=== PATIENT | male | born 1950 | race Caucasian/White ===

== ENCOUNTER → 2016-06-05 | Outpatient (CLI) | payer BC ==
[~2016-06-05] MED LIST: ALLO300T2 PO; ALPR.5T PO; ASP81TEC PO; ATOR20TA66 PO; BLACK CHERRY EXTRACT PO; DICL50TA4 PO; HYDR-2889 PO; HYDR1TAB PO; MULT1CAP27 PO; OMEG1CAP74 PO; PANT40TA PO; POTA10TA17 PO; RAMI10CA PO; RAMI10TA PO; RMP5C PO; SERT50TA PO; SIMV20TA3 PO; TEMA7.5C PO; ZLP10T PO
--- OUTSIDE RECORDS SUMMARY | 2016-06-05 13:27 | XMS REPORT | Continuity of Care Document ---
Author Author [facility] Organization [facility] Address Unknown Phone Unavailable Care Team Providers Care Theatre Manager Name Role Phone NAEEM GIRALDO MD PCP Insurance Providers Payer Name Policy Number Subscriber Name Relationship [facility] [id number] Lidia Valdez 20 Self / Same As Patient Advance Directives Directive Response Recorded Date/Time Advance Directives No 04/24/13 10:40am Health Care Power of Endoscopy Tech No 04/24/13 10:40am Organ Donor Yes 04/24/13 10:40am Problems Medical Problems Problem Onset Date Status Chest pain Unknown Active Medications Medication Dose Route Sig Days/Qty Instructions Order Date Discontinued Date Status Ramipril 10 Mg PO DAILY 12/20/10 04/25/13 Discontinued Sertraline HCl 25 Mg PO DAILY TAKES 1/2 (50MG) TABLET DAILY 12/20/10 Active Aspirin 81 Mg PO DAILY 12/20/10 Active Multivitamins 1 Tab PO DAILY 12/20/10 Active Garland-3/Dha/Epa/Fish Oil 1,000 Mg PO DAILY 12/20/10 Active Pantoprazole Sodium 40 Mg PO BEDTIME 12/20/10 Active Simvastatin 20 Mg PO BEDTIME 12/20/10 04/25/13 Discontinued Hydrocodone Bit/Acetaminophen 0.5-1 Tab PO EVERY 8HRS PRN PAIN Active Potassium Citrate 10 Meq PO DAILY 12/20/10 Active Allopurinol 300 Mg PO DAILY 01/24/13 Active Acetaminophen/Hydrocodone Bitart 1 - 2 Each PO Q4 - 6H PRN NEW RX- SENT HOME WITH 01/28/13 04/24/13 Discontinued Alprazolam 0.5 Mg PO EVERY 6 HOURS PRN ANXIETY 04/24/13 Active Zolpidem Tartrate 10 Mg PO BEDTIME PRN SLEEP NEEDED FOR SLEEP Active [Black Su Extract] 1 Tab PO DAILY 04/24/13 Active Ramipril 10 Mg PO DAILY 1 Qty 04/25/13 Active Social History Social History Problem Response Recorded Date/Time Alcohol Use Occasionally Uses 04/24/2013 10:41am Recreational Drug Use No 04/24/2013 10:41am Recent Foreign Travel No 05/18/2014 3:35pm Sexually Transmitted Disease No 04/24/2013 10:41am Hospital Discharge Instructions No hospital discharge instructions. Plan of Care No plan of care. Functional Status No functional status results. Allergies, Adverse Reactions, Alerts Allergen Type Severity Reaction Status Last Updated Beta-Blockers (Beta-Adrenergic Blocking Agts) ([id number]) Allergy Unknown Active 04/25/13 Immunizations Name Given Type Date of Pneumonia Vaccine 02/19/12 Historical Date of Influenza Vaccine 01/20/13 Historical Vital Signs No known vital signs results. Results No known relevant diagnostic tests, laboratory data and/or discharge summary. Procedures No known history of procedures. Encounters Encounter Location Date/Time Discharged Recurring [facility] 08/10/14 8:20am
--- NOTE | 2016-06-05 14:22 | Diagnostic Imaging Report ---
PROCEDURE: MR imaging cervical spine without contrast. TECHNIQUE: Multiplanar, multisequence MR imaging of the cervical spine was performed without contrast. INDICATION: Neck pain. Hand numbness. COMPARISON: None. FINDINGS: Grade 1 anterolisthesis of C4 on C5. Minimal retrolisthesis of C5 on C6 and C6 on C7. This results in reversal of the normal cervical lordosis. [id number] degenerative endplate changes, most marked C4-C6. Probable benign hemangioma in the C7 vertebral body. Bone marrow signal is otherwise unremarkable. No convincing abnormal signal within the cervical spinal cord. The cervical flow voids are preserved. C2-C3: Small posterior disc osteophyte complex results in no substantial spinal canal narrowing. Uncovertebral and facet arthropathy result in moderate bilateral neural foraminal narrowing. C3-C4: Posterior disc osteophyte complex results in mild spinal canal narrowing. Uncovertebral and facet arthropathy results in advanced left and moderate right neural foraminal narrowing. C4-C5: Posterior disc osteophyte complex results in advanced spinal canal narrowing where it flattens the cervical cord and results in complete loss of CSF signal about the cord at this level. Uncovertebral and facet arthropathy contribute to advanced right and moderate left neural foraminal narrowing. C5-C6: Posterior disc osteophyte complex results in moderate spinal canal narrowing where it contacts the ventral cervical cord. Uncovertebral and facet arthropathy contribute to moderate bilateral neural foraminal narrowing. C6-C7: Posterior disc osteophyte complex results in moderate spinal canal narrowing where it contacts the ventral cord. Uncovertebral and facet arthropathy result in moderate bilateral neural foraminal narrowing. C7-T1: No substantial spinal canal or neural foraminal narrowing. IMPRESSION: 1. 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 2. Multilevel moderate and advanced neural foraminal narrowing detailed above. Dictated by: Dictated on workstation # [id number]
== END ==
LOC: RAD 13:24
PROVIDERS: ATTEND Nurse Practitioner Family
DX: M54.2 Cervicalgia (principal); R20.0 Anesthesia of skin
CPT/HCPCS: 72141

== ENCOUNTER 2017-12-17 08:32 | Outpatient (RCR) | payer MEDICARE, OTHER | END 2017-12-21 09:00 | disposition home or self-care (01) | PROVIDERS: ATTEND Family Medicine | DX: R29.898 Other symptoms and signs involving the musculoskeletal system (principal); M79.602 Pain in left arm; M25.512 Pain in left shoulder ==

== ENCOUNTER 2018-01-17 10:45 | Outpatient (RCR) | payer MEDICARE, OTHER ==
[~2018-01-17 10:45] MED LIST changes: -RAMI10CA PO; +RAMI10CA69 PO
== END 2018-01-17 11:25 | disposition home or self-care (01) ==
PROVIDERS: ATTEND Family Medicine
DX: R29.898 Other symptoms and signs involving the musculoskeletal system (principal); M79.602 Pain in left arm; M25.512 Pain in left shoulder

== ENCOUNTER → 2018-05-31 | Outpatient (CLI) | payer MEDICARE, OTHER ==
[~2018-05-31] MED LIST changes: +IOHEXOL 350 MG/ML 100 ML (OMNIPAQUE 350) VIAL IV ONE; +NS 100 ML (IVPB) BAG IV ONE; +RECEIVED CONTRAST (Hold Metformin) IV SCH
[2018-05-31 08:51] LABS: CREATININE SERUM 1.21 MG/DL (0.60-1.30)
--- NOTE | 2018-05-31 10:55 | Diagnostic Imaging Report ---
PROCEDURE: CT abdomen and pelvis with contrast. TECHNIQUE: Multiple contiguous axial images were obtained through the abdomen and pelvis after administration of intravenous contrast. INDICATION: Back pain and abdominal pain. Correlation is made with prior CT from 08/31/2011. The lung bases are clear. No discrete liver mass is identified. The gallbladder is unremarkable. No biliary duct dilatation is seen. The pancreas is unremarkable. Spleen contains multiple calcified granulomas but otherwise is unremarkable. No adrenal mass is seen. Left kidney contains a cortical low density, slightly larger than the CT study from 2012 measuring 19 mm compared with 14 mm most likely represents a cyst. The aorta is non-aneurysmal. No central, retroperitoneal or mesenteric lymphadenopathy is seen. The small and large bowel loops are normal caliber. There is no ascites. The bladder is unremarkable. Evaluation of bony structures demonstrates postop changes of posterior instrumented fusion at the L4-L5 level. There is significant degenerative disc disease at the L1-L2 level. There is also multilevel lower thoracic degenerative disc disease. IMPRESSION: Essentially unremarkable CT of the abdomen and pelvis with contrast. No acute feature is identified. Dictated by: Dictated on workstation # [id number]
== END ==
LOC: RAD 08:24
PROVIDERS: ATTEND Internal Medicine
DX: R10.9 Unspecified abdominal pain (principal); M54.9 Dorsalgia, unspecified
CPT/HCPCS: 36415; 74177; 82565; 84520

== ENCOUNTER 2018-07-17 13:00 | Outpatient (RCR) | payer MEDICARE, OTHER ==
[~2018-07-17 13:00] MED LIST changes: -IOHEXOL 350 MG/ML 100 ML (OMNIPAQUE 350) VIAL IV ONE; -NS 100 ML (IVPB) BAG IV ONE; -RECEIVED CONTRAST (Hold Metformin) IV SCH
== END 2018-07-17 13:49 | disposition home or self-care (01) ==
PROVIDERS: ATTEND Nurse Practitioner
DX: M47.817 Spondylosis without myelopathy or radiculopathy, lumbosacral region (principal); M51.37 Other intervertebral disc degeneration, lumbosacral region; Z98.1 Arthrodesis status

== ENCOUNTER 2018-11-27 10:34 | Outpatient (RCR) | payer MEDICARE, OTHER | END 2018-11-27 11:10 | disposition home or self-care (01) | PROVIDERS: ATTEND Internal Medicine | DX: M54.5 Low back pain (principal); Z98.1 Arthrodesis status ==

== ENCOUNTER 2019-10-10 14:17 | Outpatient (RCR) | payer MEDICARE, OTHER | END 2019-10-29 | disposition home or self-care (01) | PROVIDERS: ATTEND Nurse Practitioner | DX: M54.2 Cervicalgia (principal); Z98.1 Arthrodesis status; M25.531 Pain in right wrist; M25.532 Pain in left wrist ==

== ENCOUNTER → 2020-12-14 | Outpatient (CLI) | payer MEDICARE, OTHER ==
[~2020-12-14] MED LIST changes: +CATHETER FLUSH 10 ML SYR IV PRN; +REGADENOSON 0.4 MG/5 ML SYR (LEXISCAN) IV ONE
[2020-12-14 12:54] VITALS: BP 148/95
== END ==
LOC: CARD 10:30
PROVIDERS: ATTEND Nurse Practitioner Family
DX: I35.8 Other nonrheumatic aortic valve disorders (principal); I51.7 Cardiomegaly
CPT/HCPCS: 78452; 93017; 93306; A9502

== ENCOUNTER → 2021-03-01 | Outpatient (CLI) | payer MEDICARE, OTHER ==
[~2021-03-01] MED LIST changes: -CATHETER FLUSH 10 ML SYR IV PRN; -REGADENOSON 0.4 MG/5 ML SYR (LEXISCAN) IV ONE
--- NOTE | 2021-03-01 11:18 | Diagnostic Imaging Report ---
INDICATION: COUGH. TECHNIQUE: Two view chest 10:24 AM CORRELATION STUDY: 04/24/2013 FINDINGS: The heart size, mediastinal configuration and pulmonary vasculature are within normal limits. The lungs are clear with no consolidating infiltrate. There is no significant pleural effusion or pneumothorax. Spinal fixation hardware and anchor screw over the right humeral head are partially visualized. IMPRESSION: 1. Negative for acute abnormality of the chest. Dictated by: Dictated on workstation # [id number]
== END ==
LOC: RAD 10:03
PROVIDERS: ATTEND Internal Medicine
DX: R05.9 Cough, unspecified (principal)
CPT/HCPCS: 71046

== ENCOUNTER → 2021-04-22 | Outpatient (CLI) | payer MEDICARE, OTHER ==
[2021-04-22 11:25] LABS: BASOPHILS % (AUTO) 1 % (0-10); EOSINOPHILS # (AUTO) 0.1 10^3/uL (0.0-0.3); EOSINOPHILS % (AUTO) 1 % (0-10); HEMATOCRIT 44 % (40-54); HEMOGLOBIN 15.1 g/dL (13.3-17.7); LYMPHOCYTES # (AUTO) 1.6 10^3/uL (1.0-4.0); LYMPHOCYTES % (AUTO) 20 % (12-44); MEAN CORPUSCULAR HEMOGLOBIN 32 pg (25-34); MEAN CORPUSCULAR HGB CONC 34 g/dL (32-36); MEAN CORPUSCULAR VOLUME 93 fL (80-99); MEAN PLATELET VOLUME 9.7 fL (9.0-12.2); MONOCYTES # (AUTO) 0.5 10^3/uL (0.0-1.0); MONOCYTES % (AUTO) 6 % (0-12); NEUTROPHILS # (AUTO) 5.7 10^3/uL (1.8-7.8); NEUTROPHILS % (AUTO) 72 % (42-75); PLATELET COUNT 169 10^3/uL (130-400); WHITE BLOOD COUNT 7.9 10^3/uL (4.3-11.0)
[2021-04-22 11:44] LABS: ERYTHROCYTE SEDIMENTATION RATE 1 MM/HR (0-30)
[2021-04-22 11:46] LABS: ALBUMIN 4.4 GM/DL (3.2-4.5); BILIRUBIN,TOTAL 0.5 MG/DL (0.1-1.0); CALCIUM 9.5 MG/DL (8.5-10.1); CREATININE SERUM 1.11 MG/DL (0.60-1.30); POTASSIUM 4.7 MMOL/L (3.6-5.0); TOTAL PROTEIN 6.1 GM/DL (6.4-8.2)
--- NOTE | 2021-04-22 12:22 | Diagnostic Imaging Report ---
HISTORY: Pain in the back. Radiating down the right leg. COMPARISON: None. TECHNIQUE: Three views of the lumbar spine. FINDINGS: Alignment appears normal without significant spondylolisthesis. There is posterior fusion of L4-L5 with an interbody disc spacer at that level. There is severe degenerative change at L1-L2. No acute fracture is seen in the lumbar spine. Vertebral body heights appear preserved. Bilateral sacroiliac joints are patent. IMPRESSION: 1. No acute osseous abnormality is seen in the lumbar spine. 2. Posterior fusion of L4-L5. Severe degenerative change at L1-L2. Dictated by: Dictated on workstation # [id number]
--- NOTE | 2021-04-22 12:22 | Diagnostic Imaging Report ---
HISTORY: Injury, right hip pain TECHNIQUE: 2 views of the right hip COMPARISON: None FINDINGS: No fracture is seen in the right hip. Alignment is normal. There is minimal joint space loss. IMPRESSION: 1. No acute osseous abnormality in the right hip. Dictated by: Dictated on workstation # [id number]
--- NOTE | 2021-04-22 12:24 | Diagnostic Imaging Report ---
HISTORY: Pelvic pain, injury. TECHNIQUE: Frontal view of the pelvis. COMPARISON: None. FINDINGS: No acute fracture or dislocation is seen in the pelvis. Alignment appears normal. There is minimal joint space loss in the hip joints. The bilateral sacroiliac joints are patent. Phleboliths are noted in the pelvis. Lumbar fusion hardware is noted. IMPRESSION: 1. No acute osseous abnormality is seen on this single view of the pelvis. Dictated by: Dictated on workstation # [id number]
== END ==
LOC: RAD 10:45
PROVIDERS: ATTEND Nurse Practitioner Family
DX: M47.816 Spondylosis without myelopathy or radiculopathy, lumbar region (principal); Z98.1 Arthrodesis status
CPT/HCPCS: 36415; 72100; 72170; 73502; 80053; 85025; 85652

== ENCOUNTER 2021-05-17 15:00 | Outpatient (RCR) | payer MEDICARE, OTHER | END 2021-05-20 | disposition home or self-care (01) | PROVIDERS: ATTEND Internal Medicine | DX: M54.50 Low back pain, unspecified (principal) ==

== ENCOUNTER 2021-05-26 09:45 | Outpatient (RCR) | payer MEDICARE, OTHER | END 2021-05-26 11:00 | disposition home or self-care (01) | PROVIDERS: ATTEND Internal Medicine | DX: M54.50 Low back pain, unspecified (principal); I10 Essential (primary) hypertension ==

== ENCOUNTER → 2021-11-17 | Outpatient (RCR) | payer MEDICARE, OTHER | END | disposition home or self-care (01) | PROVIDERS: ATTEND Orthopaedic Surgery | DX: M75.101 Unspecified rotator cuff tear or rupture of right shoulder, not specified as traumatic (principal); I10 Essential (primary) hypertension ==

== ENCOUNTER 2021-11-30 13:45 | Outpatient (RCR) | payer MEDICARE, OTHER | END 2021-12-18 | disposition home or self-care (01) | PROVIDERS: ATTEND Orthopaedic Surgery | DX: M75.101 Unspecified rotator cuff tear or rupture of right shoulder, not specified as traumatic (principal); I10 Essential (primary) hypertension ==

== ENCOUNTER 2021-12-26 14:32 | Outpatient (RCR) | payer MEDICARE, OTHER | END 2022-01-18 | disposition home or self-care (01) | PROVIDERS: ATTEND Orthopaedic Surgery | DX: M75.101 Unspecified rotator cuff tear or rupture of right shoulder, not specified as traumatic (principal); I10 Essential (primary) hypertension ==

== ENCOUNTER → 2022-01-05 | Outpatient (CLI) | payer MEDICARE, OTHER ==
--- NOTE | 2022-01-05 12:16 | Diagnostic Imaging Report ---
PROCEDURE: US Renal Bilateral. TECHNIQUE: Multiple real-time grayscale images were obtained over the kidneys in various projections bilaterally. INDICATION: Left renal cyst. COMPARISON: Correlation is made with CT study from 05/31/2018. FINDINGS: Right kidney measures 11.6 x 5.6 x 4.6 cm, and left kidney measures 10.2 x 4.7 x 5.7 cm. Cortical thickness and echogenicity is normal bilaterally. There are no calculi. There is no hydronephrosis. There is a cyst in the upper pole of the left kidney measuring 2.7 x 2.4 x 1.9 cm. This has increased in size since prior CT from May 2018. No other renal masses are detected. Bladder is decompressed. Bilateral ureteral jets are visualized. IMPRESSION: Enlarging cyst in the upper pole of the left kidney since CT from 2018. Dedicated CT of the abdomen with and without IV contrast could be performed for further characterization. Dictated by: Dictated on workstation # [id number]
== END ==
LOC: RAD 10:14
PROVIDERS: ATTEND Nurse Practitioner Family
DX: N28.1 Cyst of kidney, acquired (principal)
CPT/HCPCS: 76770

== ENCOUNTER → 2022-01-10 | Outpatient (CLI) | payer MEDICARE, OTHER ==
[~2022-01-10] MED LIST changes: +CATHETER FLUSH 10 ML SYR IV PRN; +HOLD METFORMIN - RECEIVED CONTRAST 20 ML VIAL IV SCH; +IOHEXOL 350 MG/ML 100 ML (OMNIPAQUE 350) VIAL IV ONE; +NS 100 ML (IVPB) BAG IV ONE
--- NOTE | 2022-01-10 12:16 | Diagnostic Imaging Report ---
PROCEDURE: CT abdomen with and without contrast. TECHNIQUE: Multiple contiguous axial CT images of the abdomen were obtained prior to and after intravenous administration of iodinated contrast. Auto Exposure Controls were utilized during the CT exam to meet ALARA standards for radiation dose reduction. INDICATION: Ultrasound dated 01/05/2022 showed an enlarging cystic lesion in the upper pole of the left kidney of uncertain etiology. COMPARISON: This exam is correlated with an ultrasound of 01/05/2022 as well as compared with a CT abdomen/pelvis dated 05/31/2018. FINDINGS: A cyst in the upper pole of the left kidney measures a diameter of 2.1 cm today, 1.8 cm on the prior CT. It shows no internal septation and has no mural nodularity. There is no enhancing component or appreciable complexity. This is consistent with a benign Bosniak 1 cyst requiring no further workup. There is no solid, enhancing, complex, or suspicious renal lesion and there is no hydroureteronephrosis. A 2 mm nonobstructing left renal stone is present. No perinephric stranding. The adrenals are negative. The ureters are unremarkable where visualized. The liver, gallbladder, bile ducts, adrenals, and pancreas are negative. Benign scattered splenic calcified granulomata are noted. The aorta is nonaneurysmal. There is no ascites, abscess, hematoma, or acute fluid collection. No omental infiltration. No adenopathy. The lung bases are clear. IMPRESSION: The cystic left renal lesion is a benign simple Bosniak 1 cyst. There is nonobstructing nephrolithiasis on the left. There is no acute or suspicious appearing abnormality. Dictated by: Dictated on workstation # [id number]
== END ==
LOC: RAD 10:20
PROVIDERS: ATTEND Nurse Practitioner Family
DX: N28.1 Cyst of kidney, acquired (principal); N20.0 Calculus of kidney
CPT/HCPCS: 74170

== ENCOUNTER 2022-09-06 14:05 | Outpatient (RCR) | payer MEDICARE, OTHER ==
[~2022-09-06 14:05] MED LIST changes: -CATHETER FLUSH 10 ML SYR IV PRN; -HOLD METFORMIN - RECEIVED CONTRAST 20 ML VIAL IV SCH; -IOHEXOL 350 MG/ML 100 ML (OMNIPAQUE 350) VIAL IV ONE; -NS 100 ML (IVPB) BAG IV ONE
== END 2022-09-17 | disposition home or self-care (01) ==
PROVIDERS: ATTEND Internal Medicine
DX: M25.512 Pain in left shoulder (principal); M54.9 Dorsalgia, unspecified; I10 Essential (primary) hypertension